=== PATIENT | male | born 1970 | race Caucasian/White ===

== ENCOUNTER → 2019-03-04 | Outpatient (CLI) | payer OTHER ==
[~2019-03-04] MED LIST: ATORVASTATIN CA40 MG PO; CENTRUM SILVER1 EAC2 PO; FENOFIBRATE160 MG PO; LISINOPRIL20 MG PO; NAPROSYN500 MG PO; NORFLEX100 MG PO; OMEGA 3 1,0001 EACH PO; PREVACID 24HR15 MG PO; TRAMADOL 50 MG50 MG PO
== END ==
LOC: RAD 15:32
DX: M79.671 Pain in right foot (principal); Z88.8 Allergy status to other drugs, medicaments and biological substances

== ENCOUNTER → 2020-12-08 | Outpatient (CLI) | payer OTHER | LOC: RAD 11:50 | PROVIDERS: ATTEND Family Medicine | DX: M25.512 Pain in left shoulder (principal) ==